=== PATIENT | female | born 1945 | race Two or more races ===

== ENCOUNTER 2019-08-13 13:00 | Inpatient (IN) | payer OTHER ==
[~2019-08-13] VITALS: Ht 157.5 cm; Wt 107.5 kg
[2019-08-15] MEDS ORDERED: ZOCOR20 MG PO (13:46)
[2019-08-15] MEDS ORDERED: GLIMEPIRIDE1 MG PO (13:46)
[2019-08-15] MEDS ORDERED: ATACAND PO (13:47)
[2019-08-15] MEDS ORDERED: ASPIR 8181 MG PO (13:47)
[2019-08-15] MEDS ORDERED: PEPCID PO (13:48)
[2019-08-15] MEDS ORDERED: VITAMIN D-40010 MCG PO (13:48)
[2019-08-20] MEDS ORDERED: PEPCID AC20 MG PO (10:06)
[2019-08-20] MEDS ORDERED: ATACAND HCT 161 EACH PO (10:06)
[2019-08-22] MEDS ORDERED: INTEGRA PLUS C1 EACH PO (07:00)
[2019-08-22] MEDS ORDERED: BACTRIM DS TAB1 EACH PO (07:00)
[2019-08-22] MEDS ORDERED: XARELTO10 MG PO (07:00)
[2019-08-22] MEDS ORDERED: OXYC1TAB9 PO (07:00)
== END 2019-08-22 13:21 | DRG 470 ==
LOC: O/R 08-19 05:56 → SURH 08-19 13:00 → SURG 08-19 19:48
PROVIDERS: ADMIT Orthopaedic Surgery Sports Medicine; ATTEND Orthopaedic Surgery Sports Medicine
PROC: 0SRC0J9 Replacement of Right Knee Joint with Synthetic Substitute, Cemented, Open Approach (ICD-10-PCS; principal; 2019-08-19 12:15)
DX: M17.11 Unilateral primary osteoarthritis, right knee (principal); I10 Essential (primary) hypertension; E11.9 Type 2 diabetes mellitus without complications; E78.00 Pure hypercholesterolemia, unspecified; Z96.651 Presence of right artificial knee joint